=== PATIENT | female | born 1980 | race Caucasian/White ===

== ENCOUNTER 2021-07-07 12:40 | Emergency (ER) | payer OTHER ==
--- NOTE | 2021-07-07 13:38 | XRAY Report ---
PROCEDURE: Ribs w/PA Chest RT INDICATIONS: fall, rib pain TECHNIQUE: 3 views of the right ribs were acquired, along with a single view chest. COMPARISON: None FINDINGS: Surgical changes and devices: None. Bones and chest wall: There is a mildly displaced acute fracture involving the posterior right 10th r ib. Postsurgical changes from ORIF of the right midclavicle. No suspicious bony lesions. Overlying soft tissues appear unremarkable. Lungs and pleura: No pleural effusions or pneumothorax. Lungs appear clear. Mediastinum: Mediastinal contours appear normal. Heart size is normal. IMPRESSION: Mildly displaced, acute posterior right 10th rib fracture. No pneumothorax. No acute cardiopulmonary abnormalities. Reviewed by: Quang Smith MD on 07/07/2021 12:37 PM [facility] Approved by: Quang Smith MD on 07/07/2021 12:37 PM [facility] Station ID: [id number]
--- NOTE | 2021-07-07 13:40 | ED Physician Documentation ---
History of Present Illness - Stated complaint Stated Complaint: FELL OFF HORSE - Chief complaint Chief Complaint: Trauma Ch/Bk - History obtained from History obtained from: Patient - History of Present Illness Timing: Yesterday Pain level max: 8 Pain level now: 6 - Additonal information Additional information: Patient is a 40-year-old female who presents to the emergency department after a fall off of a horse yesterday in an arena. She was wearing a helmet. No loss of consciousness. Complains of right lower rib pain. Worse with movement, better with rest. No difficulty breathing. Review of Systems Constitutional: denies: Fever, Chills GI: denies: Nausea, Vomiting, Diarrhea Skin: denies: Rash Musculoskeletal: denies: Neck pain, Back pain Neurologic: denies: Headache PD PAST MEDICAL HISTORY - Past Medical History Past Medical History: No Cardiovascular: None Respiratory: None Neuro: None Endocrine/Autoimmune: None GI: None REGISTERED OCCUPATIONAL THERAPIST: None : None HEENT: None Psych: None Musculoskeletal: None Derm: None - Past Surgical History Past Surgical History: Yes Ortho: Other - Present Medications Home Medications: Ambulatory Orders Medication Instructions Recorded Confirmed HYDROcod/ACETAM 5/325 [[place] 5/325] 1 - 2 ea PO Q6H PRN #14 tablet 07/07/21 Lidocaine Patch 5% [Lidoderm Patch] 1 patch TOP DAILY PRN #10 patch 07/07/21 - Allergies Allergies/Adverse Reactions: Allergies Allergy/AdvReac Type Severity Reaction Status Date / Time No Known Drug Allergies Allergy Verified 07/07/21 12:48 - Social History Does the pt smoke?: No Smoking Status: Never smoker Does the pt drink ETOH?: No Does the pt have substance abuse?: No - Immunizations Immunizations are current?: Yes PD ED PE NORMAL - Vitals Vital signs reviewed: Yes - General General: Alert and oriented X 3, No acute distress - HEENT HEENT: Moist mucous membranes - Neck Neck: Supple, no meningeal sign - Cardiac Cardiac: RRR - Respiratory Respiratory: No respiratory distress, Clear bilaterally, Other (TTP R posterior ribs approx 9-11 no crepitus or ecchymosis.) - Derm Derm: Warm and dry - Neuro Neuro: Alert and oriented X 3 - Psych Psych: Normal mood, Normal affect Results - Vitals Vitals: Vital Signs - 24 hr 07/07/21 07/07/21 12:44 14:03 Temperature 35.7 C L Heart Rate 79 79 Respiratory 16 20 Rate Blood Pressure 144/82 H 150/90 H O2 Saturation 99 99 Oxygen O2 Source Room air - Rads (name of study) R rib xray Radiology: Final report received, EMP read contemporaneously, See rad report PD MEDICAL DECISION MAKING - ED course Complexity details: reviewed results, re-evaluated patient, considered differential, d/w patient ED course: 40 year old female status post a fall off of a horse. She has a right 10th rib fracture. No pneumothorax or hemothorax. Declines pain medication here. Will prescribe pain medication for home as well as Lidoderm patches. I am prescribing a short course of short-acting opioid pain medication for this patient. 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 I have discussed that the opioids are for short term therapy only, and will not be refilled from the ED. Patient counseled regarding signs and symptoms for which I believe and urgent re-evaluation would be necessary. Patient with good understanding of and agreement to plan and is comfortable going home at this time This document was made in part using voice recognition software. While efforts are made to proofread this document, sound alike and grammatical errors may occur. Departure - Departure Disposition: 01 Home, Self Care Clinical Impression: Rib fracture Qualifiers: Encounter type: initial encounter Rib fracture type: single rib Fracture type: closed Laterality: right Qualified Code(s): S22.31XA - Fracture of one rib, right side, initial encounter for closed fracture Condition: Good Instructions: ED Fx Rib Follow-Up: Provider,Other [Primary Care Provider] - Within 1 week Prescriptions: Lidocaine Patch 5% [Lidoderm Patch] 1 patch TOP DAILY PRN #10 patch PRN Reason: pain HYDROcod/ACETAM 5/325 [Vernon 5/325] 1 - 2 ea PO Q6H PRN #14 tablet PRN Reason: Pain Comments: Your prescriptions were sent to [facility] in [place]. Please follow-up with your doctor for further care. Return if you worsen. You do have a right-sided 10th rib fracture. This should heal on its own. I am prescribing a short course of narcotic pain medication for you. These are potentially dangerous and addictive medications that should be used carefully. These medications may constipate you. Take an xxei-vcb-nhjuxtr stool softener (docusate) twice daily with plenty of water while taking these medications. If you go 24 hours without a bowel movement, take [id number] miralax, per package instructions. Do not drink or drive while taking these medications. If you received narcotic or sedating medications while in the emergency d epartment, do not drive for 24 hours. Store this medication in a safe, secure place and out of reach of children. It is a violation of federal law to give or sell this medication to another person or to use in a manner other than prescribed. The ED will not refill narcotic prescriptions, including prescriptions lost or stolen. To dispose of unwanted medications: 1. [facility] at [address] in [place] has a medication drop box. They accept prescription medications (in pill form) Thursday through Thursday 9:00 a.m. to 5:00 p.m. 2. The [facility] [employer] accepts prescription medications (in pill form only) for disposal year round. Call for more information. 3. Contact the [facility] for the next [facility] sponsored prescription drug collection event. , [phone], or [phone]; Discharge Date/Time: 07/07/21 14:10
[2021-07-07 14:04] VITALS: BP 150/90
== END 2021-07-07 14:10 | disposition home or self-care (01) ==
LOC: ED 12:40
DX: S22.31XA Fracture of one rib, right side, initial encounter for closed fracture (principal); V80.010A Animal-rider injured by fall from or being thrown from horse in noncollision accident, initial encounter; Y93.52 Activity, horseback riding; Y92.838 Other recreation area as the place of occurrence of the external cause
CPT/HCPCS: 99283

== ENCOUNTER 2022-12-13 18:04 | Emergency (ER) | payer OTHER ==
[2022-12-13 18:19] VITALS: BP 150/89
--- NOTE | 2022-12-13 18:25 | ED Physician Documentation ---
History of Present Illness - Stated complaint Stated Complaint: FEMALE - Chief complaint Chief Complaint: General - History obtained from History obtained from: Patient - Additonal information Additional information: 42-year-old female presented with dysuria urgency and frequency since last night. She also has mild nausea, no vomiting, mild lower back pain as well. No fever. Feels similar to prior UTIs. No history of kidney stones or pyelonephritis in the past. She has not attempted any medication for this issue. She denies any concern for STI. She is on the end of her menses. Review of Systems Constitutional: reports: Reviewed and negative Cardiac: reports: Reviewed and negative Respiratory: reports: Reviewed and negative GI: reports: Nausea. denies: Abdominal Pain, Abdominal Swelling, Vomiting, Diarrhea : reports: Dysuria, Frequency Skin: reports: Reviewed and negative Musculoskeletal: reports: Reviewed and negative Neurologic: reports: Reviewed and negative Psychiatric: reports: Reviewed and negative Endocrine: reports: Reviewed and negative PD PAST MEDICAL HISTORY - Past Medical History Cardiovascular: None Respiratory: None Neuro: None Endocrine/Autoimmune: None GI: None HOSPITAL MEDICAL BILLER: None : None HEENT: None Psych: None Musculoskeletal: None Derm: None - Past Surgical History Past Surgical History: Yes Ortho: Other - Present Medications Home Medications: Ambulatory Orders Medication Instructions Recorded Confirmed cephALEXin [Keflex] 500 mg PO BID 5 Days #10 cap 12/13/22 - Allergies Allergies/Adverse Reactions: Allergies Allergy/AdvReac Type Severity Reaction Status Date / Time No Known Drug Allergies Allergy Verified 07/07/21 12:48 - Social History Does the pt smoke?: No Smoking Status: Never smoker Does the pt drink ETOH?: No Does the pt have substance abuse?: No - Immunizations Immunizations are current?: Yes PD ED PE NORMAL - Vitals Vital signs reviewed: Yes - General General: Alert and oriented X 3, No acute distress, Well developed/nourished - HEENT HEENT: Atraumatic, Pharynx benign - Neck Neck: Supple, no meningeal sign, No JVD - Cardiac Cardiac: RRR, No murmur - Respiratory Respiratory: No respiratory distress, Clear bilaterally - Abdomen Abdomen: Normal bowel sounds, Soft, Non tender, Non distended - Back Back: No CVA TTP - Derm Derm: Normal color, No rash - Neuro Neuro: Alert and oriented X 3 Eye Opening: Spontaneous Motor: Obeys Commands Verbal: Oriented GCS Score: 15 - Psych Psych: Normal mood, Normal affect Results - Vitals Vitals: Vital Signs - 24 hr 12/13/22 18:12 Temperature 37.2 C Heart Rate 92 Respiratory 20 Rate Blood Pressure 150/89 H O2 Saturation 99 Oxygen O2 Source Room air - Labs Labs: Laboratory Tests 12/13/22 18:24 Urine Color YELLOW Urine Clarity SL. CLOUDY Urine pH 6.0 Ur Specific [place] 1.010 Urine Protein TRACE Urine Glucose (UA) NEGATIVE Urine Ketones NEGATIVE Urine Occult Blood LARGE H Urine Nitrite NEGATIVE Urine Bilirubin NEGATIVE Urine Urobilinogen 0.2 (NORMAL) Ur Leukocyte Esterase MODERATE H Urine RBC TNTC H Urine WBC >25 H Urine WBC Clumps PRESENT Ur Squamous Epith Cells RARE Squamous Urine Bacteria Few Ur Microscopic Review INDICATED Urine Culture Comments INDICATED PD Medical Decision Making - ED course Complexity details: reviewed results, considered differential, d/w patient ED course: 42-year-old female presented with dysuria urgency and frequency is feeling similar to prior UTIs. She had nausea but no vomiting, no fever, no CVAT on physical exam. She does have some blood in her urine but she is on the tail end of her period. Her physical exam is not suggestive of pyelonephritis or kidney stone. Her urinalysis otherwise is suggestive of infection and has been sent for culture. We will start treatment here with Keflex tonight and she can continue the prescription for the next 5 days, it was sent to her pharmacy at [facility]. She is also advised to take Tylenol or ibuprofen as needed for discomfort, drink plenty of fluids and return if she develops a fever, increasing flank pain, vomiting and unable to tolerate p.o. or other new concerns. Departure - Departure Disposition: 01 Home, Self Care Clinical Impression: Acute UTI Condition: Good Instructions: ED UTI Cystitis Female Prescriptions: cephALEXin [Keflex] 500 mg PO BID 5 Days #10 cap Comments: Please take all antibiotics as prescribed. If you have worsening symptoms, no improvement with course of treatment, fever or increased flank pain, or other new concerns, please return to the ER. Medication sent to [facility]. Forms: PCP List
[2022-12-13 18:31] LABS: BILIRUBIN,URINE NEGATIVE (NEGATIVE); CLARITY,URINE SL. CLOUDY (CLEAR); GLUCOSE, URINE (UA) NEGATIVE (NEGATIVE); KETONES,URINE (UA) NEGATIVE (NEGATIVE); LEUKOCYTE ESTERASE, URINE MODERATE (NEGATIVE); NITRITE,URINE NEGATIVE (NEGATIVE); OCCULT BLOOD,URINE LARGE (NEGATIVE); PROTEIN,URINE TRACE mg/dL (NEGATIVE); UROBILINOGEN,URINE 0.2 (NORMAL) E.U./dL (NORMAL)
[2022-12-13 18:39] LABS: BACTERIA,URINE Few /HPF (None Seen); RBC,URINE TNTC /HPF (0-5); SQUAMOUS EPITHELIAL CELL,UR RARE Squamous (<= Few); WBC CLUMPS,URINE PRESENT; WBC,URINE >25 /HPF (0-5)
[2022-12-13] MEDS ORDERED: cephALEXin 250 MG CAPSULE PO STA (18:41)
[2022-12-13] MEDS ORDERED: PHENAZOPYRIDINE 100 MG TABLET PO STA (18:42)
== END 2022-12-13 18:52 | disposition home or self-care (01) ==
LOC: ED 18:04
DX: N39.0 Urinary tract infection, site not specified (principal); B96.20 Unspecified Escherichia coli [E. coli] as the cause of diseases classified elsewhere; Z87.440 Personal history of urinary (tract) infections
CPT/HCPCS: 81001; 87077; 87086; 87181; 99283; A9270; 81003

== ENCOUNTER 2022-12-24 13:15 | Outpatient (CLI) | payer OTHER | END 2022-12-24 13:30 | disposition home or self-care (01) | LOC: LAB.N 13:15 | PROVIDERS: ATTEND Registered Nurse | DX: N12 Tubulo-interstitial nephritis, not specified as acute or chronic (principal); R82.79 Other abnormal findings on microbiological examination of urine | CPT/HCPCS: 87086 ==